=== PATIENT | male | born 1960 | race Caucasian/White ===

== ENCOUNTER 2021-01-16 09:32 | Inpatient (IN) ==
[2021-01-16] MEDS ORDERED: VANCOMYCIN INJ 1,250 MG in SODIUM CHLORIDE 0.9% 250 ML IV STA (10:32)
[2021-01-16 10:50] LABS: Basophils % 0.2 % (0.0-0.8); Hematocrit 41.5 VOL% (42.0-52.0); Hemoglobin 13.3 GM/DL (14.0-18.0); Immature Granulocytes % 0.3 %; Immature Granulocytes Absolute 0.03 #; Lymphocytes # 0.3 10*3/uL (1.4-4.0); Lymphocytes % 3.3 % (21.2-54.2); Mean Corpuscular Volume 105.3 FL (87-102); Mean Platelet Volume 10.4 FL (9.6-12.0); Monocytes % 7.1 % (1.7-12.7); Neutrophils % 89.1 % (38.7-73.9); Platelet Count 119 T/CUMM (130-400); Red Blood Count 3.94 MC/CUMM (3.8-5.5); Red Cell Distribution Width 14.4 % (9.3-17.3); White Blood Count 8.9 T/CUMM (4-12)
[2021-01-16 10:51] LABS: Calcium 8.7 MG/DL (8.5-10.1); Osmolality,Calculated 275.8 MOS/KG (273-304); Potassium 3.8 MMOL/L (3.5-5.1)
[2021-01-16] MEDS ORDERED: ALBUTEROL 2.5 MG/3 ML NEB RESP TX PRN (12:04)
[2021-01-16] MEDS ORDERED: GLUCAGON 1 MG VIAL IM PRN (12:04)
[2021-01-16] MEDS ORDERED: ONDANSETRON 4 MG/2 ML VIAL IV PRN (12:04)
[2021-01-16] MEDS ORDERED: ZALEPLON 5 MG CAPSULE PO PRN (12:04)
[2021-01-16] MEDS ORDERED: DEXTROSE 50% 25 GM/50 ML VIAL IV PRN (12:04)
[2021-01-16] MEDS ORDERED: SODIUM CHLORIDE 0.9% 1,000 ML IV ONE (12:29)
[2021-01-16] MEDS ORDERED: SODIUM CHLORIDE 0.9% 2,700 ML IV ONE (12:33)
[2021-01-16 13:05] LABS: Albumin 2.6 G/DL (3.4-5.0); Bilirubin,Total 0.7 MG/DL (0.20-1.00); Calcium 8.3 MG/DL (8.5-10.1); Osmolality,Calculated 272.1 MOS/KG (273-304); Potassium 3.8 MMOL/L (3.5-5.1); Total Protein 6.5 G/DL (6.4-8.2)
[2021-01-16 13:35] LABS: INR 1.1; PT Patient Result 12.1 SECS (10.5-12.0)
[2021-01-16] MEDS: SODIUM CHLORIDE 0.9% 1,000 ML IV SCH ×2 (14:17→22:32)
[2021-01-16] MEDS: ACETAMINOPHEN 325 MG TABLET PO PRN ×2 (14:17→20:03)
[2021-01-16] MEDS: PIPERACILLIN/TAZOBACTAM 3,375 MG in SODIUM CHLORIDE 0.9% 100 ML IV SCH (16:47)
[2021-01-16] MEDS: ENOXAPARIN 40 MG/0.4 ML SYRINGE SUBCUT SCH (16:47)
[2021-01-16] MEDS: SIMVASTATIN 40 MG TABLET PO SCH (20:03)
[2021-01-16] MEDS ORDERED: IBUPROFEN 400 MG TABLET PO PRN (21:07)
[2021-01-16] MEDS: VANCOMYCIN INJ 1,500 MG in SODIUM CHLORIDE 0.9% 500 ML IV SCH (22:51)
[2021-01-17] MEDS: PIPERACILLIN/TAZOBACTAM 3,375 MG in SODIUM CHLORIDE 0.9% 100 ML IV SCH ×3 (01:08→16:13)
[2021-01-17 05:46] LABS: Basophils % 0.3 % (0.0-0.8); Hematocrit 35.5 VOL% (42.0-52.0); Hemoglobin 11.2 GM/DL (14.0-18.0); Immature Granulocytes % 0.6 %; Immature Granulocytes Absolute 0.02 #; Lymphocytes # 0.3 10*3/uL (1.4-4.0); Lymphocytes % 8.3 % (21.2-54.2); Mean Corpuscular HGB Conc 31.5 GM/DL (32-36); Mean Corpuscular Volume 106.9 FL (87-102); Mean Platelet Volume 10.7 FL (9.6-12.0); Monocytes % 11.7 % (1.7-12.7); Neutrophils % 79.1 % (38.7-73.9); Platelet Count 86 T/CUMM (130-400); Red Blood Count 3.32 MC/CUMM (3.8-5.5); Red Cell Distribution Width 14.7 % (9.3-17.3); White Blood Count 3.5 T/CUMM (4-12)
[2021-01-17 06:03] LABS: Calcium 7.8 MG/DL (8.5-10.1); Osmolality,Calculated 282.4 MOS/KG (273-304); Potassium 3.9 MMOL/L (3.5-5.1)
[2021-01-17 06:19] LABS: Band Neutrophils 2 % (0-10); Hypochromasia Slight; Lymphocytes 7 % (20-55); Microcytosis Slight; Platelet Estimate Decreased; Segmented Neutrophils 83 % (50-85); Total Cells Counted 100
[2021-01-17] MEDS: SODIUM CHLORIDE 0.9% 1,000 ML IV SCH ×2 (06:25→11:02)
[2021-01-17] MEDS: PANTOPRAZOLE 40 MG TABLET PO SCH (08:37)
[2021-01-17] MEDS: VANCOMYCIN INJ 1,500 MG in SODIUM CHLORIDE 0.9% 500 ML IV SCH ×2 (10:50→23:15)
[2021-01-17] MEDS: ACETAMINOPHEN 325 MG TABLET PO PRN (15:04)
[2021-01-17] MEDS: ENOXAPARIN 40 MG/0.4 ML SYRINGE SUBCUT SCH (16:56)
[2021-01-17] MEDS: SIMVASTATIN 40 MG TABLET PO SCH (20:46)
[2021-01-18] MEDS: PIPERACILLIN/TAZOBACTAM 3,375 MG in SODIUM CHLORIDE 0.9% 100 ML IV SCH (01:55)
[2021-01-18 05:37] LABS: Basophils % 0.6 % (0.0-0.8); Eosinophils # 0.1 10*3/uL (0.0-0.87); Eosinophils % 1.9 % (0.00-10.9); Immature Granulocytes % 0.6 %; Immature Granulocytes Absolute 0.02 #; Lymphocytes # 0.4 10*3/uL (1.4-4.0); Lymphocytes % 14.2 % (21.2-54.2); Mean Corpuscular HGB Conc 32.4 GM/DL (32-36); Mean Corpuscular Volume 104.9 FL (87-102); Mean Platelet Volume 10.8 FL (9.6-12.0); Monocytes % 18.4 % (1.7-12.7); Neutrophils % 64.3 % (38.7-73.9); Platelet Count 77 T/CUMM (130-400); Red Blood Count 3.24 MC/CUMM (3.8-5.5); Red Cell Distribution Width 14.4 % (9.3-17.3); White Blood Count 3.1 T/CUMM (4-12)
[2021-01-18 06:02] LABS: Calcium 7.8 MG/DL (8.5-10.1); Osmolality,Calculated 269.1 MOS/KG (273-304); Potassium 4.2 MMOL/L (3.5-5.1)
[2021-01-18 06:03] LABS: Band Neutrophils 4 % (0-10); Eosinophils 4 % (0-10); Lymphocytes 11 % (20-55); Platelet Estimate Decreased; Segmented Neutrophils 69 % (50-85); Total Cells Counted 100
[2021-01-18] MEDS: PANTOPRAZOLE 40 MG TABLET PO SCH (08:23)
[2021-01-18] MEDS: ASPIRIN EC 81 MG TABLET PO SCH (08:23)
[2021-01-18] MEDS: VANCOMYCIN INJ 1,500 MG in SODIUM CHLORIDE 0.9% 500 ML IV SCH (12:10)
[2021-01-18] MEDS: ENOXAPARIN 40 MG/0.4 ML SYRINGE SUBCUT SCH (17:41)
[2021-01-18] MEDS: SIMVASTATIN 40 MG TABLET PO SCH (21:43)
[2021-01-19] MEDS: VANCOMYCIN INJ 1,500 MG in SODIUM CHLORIDE 0.9% 500 ML IV SCH (00:05)
[2021-01-19] MEDS: ASPIRIN EC 81 MG TABLET PO SCH (09:01)
[2021-01-19] MEDS: PANTOPRAZOLE 40 MG TABLET PO SCH (09:02)
[2021-01-19 09:52] LABS: Basophils % 0.3 % (0.0-0.8); Eosinophils % 0.7 % (0.00-10.9); Hematocrit 34.9 VOL% (42.0-52.0); Hemoglobin 11.6 GM/DL (14.0-18.0); Immature Granulocytes % 0.7 %; Immature Granulocytes Absolute 0.02 #; Lymphocytes # 0.5 10*3/uL (1.4-4.0); Lymphocytes % 17.2 % (21.2-54.2); Mean Corpuscular HGB Conc 33.2 GM/DL (32-36); Mean Corpuscular Volume 102.9 FL (87-102); Monocytes % 19.9 % (1.7-12.7); Neutrophils % 61.2 % (38.7-73.9); Platelet Count 73 T/CUMM (130-400); Red Blood Count 3.39 MC/CUMM (3.8-5.5); Red Cell Distribution Width 14.6 % (9.3-17.3)
[2021-01-19 10:13] LABS: Band Neutrophils 2 % (0-10); Eosinophils 1 % (0-10); Hypochromasia Slight; Lymphocytes 19 % (20-55); Segmented Neutrophils 56 % (50-85); Total Cells Counted 100
[2021-01-19 10:14] LABS: Atypical Lymphocytes Few; Microcytosis Slight; Ovalocytes Slight; Platelet Estimate Decreased
[2021-01-19] MEDS: ENOXAPARIN 40 MG/0.4 ML SYRINGE SUBCUT SCH (16:03)
[2021-01-19] MEDS: ACETAMINOPHEN 325 MG TABLET PO PRN (16:03)
[2021-01-20 05:17] LABS: Basophils % 0.3 % (0.0-0.8); Eosinophils # 0.1 10*3/uL (0.0-0.87); Eosinophils % 2.7 % (0.00-10.9); Hematocrit 34.8 VOL% (42.0-52.0); Immature Granulocytes % 0.5 %; Immature Granulocytes Absolute 0.02 #; Lymphocytes # 0.7 10*3/uL (1.4-4.0); Lymphocytes % 19.2 % (21.2-54.2); Mean Corpuscular HGB Conc 31.6 GM/DL (32-36); Mean Corpuscular Volume 103.9 FL (87-102); Mean Platelet Volume 10.8 FL (9.6-12.0); Monocytes % 12.6 % (1.7-12.7); Neutrophils % 64.7 % (38.7-73.9); Platelet Count 87 T/CUMM (130-400); Red Blood Count 3.35 MC/CUMM (3.8-5.5); Red Cell Distribution Width 14.5 % (9.3-17.3); White Blood Count 3.7 T/CUMM (4-12)
[2021-01-20 05:36] LABS: Hypochromasia 1+; Microcytosis 1+; Platelet Estimate Decreased
[2021-01-20 05:40] LABS: Calcium 8.9 MG/DL (8.5-10.1); Osmolality,Calculated 279.3 MOS/KG (273-304); Potassium 4.1 MMOL/L (3.5-5.1)
[2021-01-20] MEDS ORDERED: MAGNESIUM SULF RIDER 4 GM/100 ML PREMIX IV PRN (07:32)
[2021-01-20] MEDS ORDERED: MAGNESIUM SULF RIDER 2 GM/50 ML PREMIX IV PRN (07:32)
[2021-01-20] MEDS: PANTOPRAZOLE 40 MG TABLET PO SCH (08:58)
[2021-01-20] MEDS: ASPIRIN EC 81 MG TABLET PO SCH (08:58)
[2021-01-20] MEDS ORDERED: MAGNESIUM SULF RIDER 4 GM/100 ML PREMIX IV ONE (09:12)
[2021-01-20 11:59] VITALS: BP 145/76
[2021-01-20] MEDS ORDERED: INFLUENZA VIRUS VACCINE 0.5 ML SYRINGE IM ONE (12:05)
== END 2021-01-20 15:53 | disposition home health service (06) | DRG 314 ==
LOC: N.ED 09:32 → SUATTDRO 11:53 → N.EDINP 11:53 → N.3E 13:10
PROVIDERS: ADMIT Internal Medicine; ATTEND Internal Medicine